=== PATIENT | female | born 1935 | race Caucasian/White ===

== ENCOUNTER 2019-07-20 07:43 | Inpatient (IN) | payer MEDICARE ==
[~2019-07-20] VITALS: Ht 157.5 cm; Wt 70.3 kg
[2019-07-20 07:44] VITALS: BP 111/53
--- NOTE | 2019-07-20 07:50 | NUR ---
ED Nurse Note: Patient walked into ED from home brought in by her son, patient needs "evaluation" before patient gets placed into a fci, [facility]. patient is alert awake, ambulatory with her walker. son at bedside. patient has HD scheduled MWF, last HD was on 07/19/18.
--- NOTE | 2019-07-20 08:19 | Emergency Room Report ---
History of Present Illness General Chief Complaint: General Complaint Source: Patient Present Illness HPI Patient is an 83-year-old female who was sent in by nursing facility for general evaluation. Patient a prior history of end-stage renal disease is normally on dialysis Monday. She had last dialysis yesterday. She denies any current complaints. She prior history of cardiac arrest in the past and had prior abdominal surgery in the past. Had previous bowel resection. Denies any current constipation or diarrhea but intermittently has episodes of constipation. She states she is followed by Dr. Alyssa fink patient's being placed in a facility contact [phone] Allergies: Coded Allergies: ADHESIVE TAPE (Verified Allergy, Unknown, 07/20/19) CODEINE (Verified Allergy, Unknown, 07/20/19) ERYTHROMYCIN BASE (Verified Allergy, Unknown, 07/20/19) PENICILLINS (Verified Allergy, Unknown, 07/20/19) Patient History Past Medical History: see triage record Now: No Reviewed Nursing Documentation: PMH: Agreed; PSxH: Agreed Nursing Documentation-PMH Past Medical History: No Stated History Hx Cardiac Problems: Yes Hx Hypertension: Yes Hx Diabetes: Yes Hx Gastrointestinal Problems: Yes - bowel obstruction Hx Dialysis: Yes - M/W/F History Of Psychiatric Problem: Yes - Depression Hx Cerebrovascular Accident: Yes - 2017 Review of Systems All Other Systems: negative except mentioned in HPI Physical Exam Vital Signs Date Time Temp Pulse Resp B/P (MAP) Pulse Ox O2 Delivery O2 Flow Rate FiO2 07/20/19 07:44 97.9 81 18 111/53 (72) 98 Room Air Sp02 EP Interpretation: reviewed, normal General Appearance: normal inspection, well appearing, no apparent distress, alert, GCS 15, Chronically Ill Head: atraumatic ENT: normal ENT inspection, hearing grossly normal, normal voice Neck: normal inspection, full range of motion, supple, no bony tend Respiratory: normal inspection, lungs clear, normal breath sounds, no respiratory distress, no retraction, no wheezing Cardiovascular #1: regular rate, rhythm, no edema Gastrointestinal: normal inspection, normal bowel sounds, non tender, soft, no guarding, no hernia Genitourinary: no CVA tenderness Musculoskeletal: normal inspection, back normal, normal range of motion Neurologic: alert, responsive, speech normal, normal inspection Psychiatric: normal inspection, judgement/insight normal, mood/affect normal Medical Decision Making Diagnostic Impression: Primary Impression: End stage renal disease Additional Impression: Thrombocytopenia ER Course Presented for generalized evaluation. Differential diagnosis includes not limited to electrolyte abnormality, renal insufficiency, anemia among others. Because of complexity of patient's case laboratory tests and imaging studies were ordered. Patient was noted to have prior history of end-stage renal disease and is currently on dialysis Monday. Patient is currently appears to be stable in terms of her renal function. She is currently undergoing dialysis and last had dialysis yesterday. Dr. Duke Lozano was contacted for inpatient management due to covering physician for Dr. La. Labs Test 07/20/19 09:21 White Blood Count 9.6 K/UL (4.8-10.8) Red Blood Count 3.69 M/UL (4.20-5.40) Hemoglobin 12.0 G/DL (12.0-16.0) Hematocrit 36.5 % (37.0-47.0) Mean Corpuscular Volume 99 FL (80-99) Mean Corpuscular Hemoglobin 32.4 PG (27.0-31.0) Mean Corpuscular Hemoglobin Concent 32.7 G/DL (32.0-36.0) Red Cell Distribution Width 13.5 % (11.6-14.8) Platelet Count 131 K/UL (150-450) Mean Platelet Volume 9.9 FL (6.5-10.1) Neutrophils (%) (Auto) 74.9 % (45.0-75.0) Lymphocytes (%) (Auto) 13.4 % (20.0-45.0) Monocytes (%) (Auto) 7.5 % (1.0-10.0) Eosinophils (%) (Auto) 3.3 % (0.0-3.0) Basophils (%) (Auto) 0.9 % (0.0-2.0) Prothrombin Time 10.9 SEC (9.30-11.50) Prothromb Time International Ratio 1.0 (0.9-1.1) Activated Partial Thromboplast Time 27 SEC (23-33) Sodium Level 139 MMOL/L (136-145) Potassium Level 4.9 MMOL/L (3.5-5.1) Chloride Level 100 MMOL/L (98-107) Carbon Dioxide Level 30 MMOL/L (21-32) Anion Gap 9 mmol/L (5-15) Blood Urea Nitrogen 35 mg/dL (7-18) Creatinine 4.3 MG/DL (0.55-1.30) Estimat Glomerular Filtration Rate mL/min (>60) Glucose Level 124 MG/DL (74-106) Calcium Level 8.4 MG/DL (8.5-10.1) Total Bilirubin 0.4 MG/DL (0.2-1.0) Aspartate Amino Transf (AST/SGOT) 18 U/L (15-37) Alanine Aminotransferase (ALT/SGPT) 18 U/L (12-78) Alkaline Phosphatase 113 U/L (46-116) Troponin I 0.017 ng/mL (0.000-0.056) Total Protein 7.6 G/DL (6.4-8.2) Albumin 3.6 G/DL (3.4-5.0) Globulin 4.0 g/dL Albumin/Globulin Ratio 0.9 (1.0-2.7) Lipase 318 U/L (73-393) Last Vital Signs Date Time Temp Pulse Resp B/P (MAP) Pulse Ox O2 Delivery O2 Flow Rate FiO2 07/20/19 07:44 97.9 81 18 111/53 (72) 98 Room Air Status: unchanged Disposition: ADMITTED INPATIENT Condition: Stable Feliciano Brennan MD Jul 20, 2019 08:19
--- NOTE | 2019-07-20 09:26 | NUR ---
ED Nurse Note: ER fax number provided to the son for patient's medication list.
[2019-07-20 09:37] LABS: BASOPHILS % (AUTO) 0.9 % (0.0-2.0); EOSINOPHILS % (AUTO) 3.3 % (0.0-3.0); HEMATOCRIT 36.5 % (37.0-47.0); LYMPHOCYTES % (AUTO) 13.4 % (20.0-45.0); MEAN CORPUSCULAR VOLUME 99 FL (80-99); MONOCYTES % (AUTO) 7.5 % (1.0-10.0); NEUTROPHILS % (AUTO) 74.9 % (45.0-75.0); PLATELET COUNT 131 K/UL (150-450); RED BLOOD COUNT 3.69 M/UL (4.20-5.40); RED CELL DISTRIBUTION WIDTH 13.5 % (11.6-14.8); WHITE BLOOD COUNT 9.6 K/UL (4.8-10.8)
[2019-07-20 09:49] LABS: ANION GAP 9 mmol/L (5-15); BLOOD UREA NITROGEN 35 mg/dL (7-18); CALCIUM 8.4 MG/DL (8.5-10.1); CARBON DIOXIDE 30 MMOL/L (21-32); CHLORIDE 100 MMOL/L (98-107); CREATININE 4.3 MG/DL (0.55-1.30); POTASSIUM 4.9 MMOL/L (3.5-5.1); SODIUM 139 MMOL/L (136-145)
[2019-07-20 09:54] LABS: ALANINE AMINOTRANSFERASE 18 U/L (12-78); ALBUMIN 3.6 G/DL (3.4-5.0); ALBUMIN/GLOBULIN RATIO 0.9 (1.0-2.7); ALKALINE PHOSPHATASE 113 U/L (46-116); ASPARTATE AMINO TRANSFERASE 18 U/L (15-37); BILIRUBIN,TOTAL 0.4 MG/DL (0.2-1.0)
--- NOTE | 2019-07-20 10:00 | NUR ---
ED Nurse Note: patient's son is trying to get medication list from patient's dialysis center at the moment. ER fax number provided.
[2019-07-20 10:53] VITALS: BP 114/41
--- NOTE | 2019-07-20 11:03 | NUR ---
ED Nurse Note: patient unable to provide urine sample at this time. reports she only voids once a day. patient reports she is oliguric. son at bedside. phone number [phone]. patient provided with blankets.
--- NOTE | 2019-07-20 12:26 | NUR ---
ED Nurse Note: report given to Danisha WILD, endorsed all plan of care to her.
--- NOTE | 2019-07-20 12:27 | NUR ---
ED Nurse Note: endorsed to Danisha RN that patient's medication reconciliation was not done yet, son will be providing a medication list.
--- NOTE | 2019-07-20 12:40 | NUR ---
ED Nurse Note: patient transferred to 2E with all of her belongings on ACLS protocol without complication. son just came back with red bag and medication lists, endorsed to Elana WILD.
[2019-07-20 12:45] VITALS: BP 116/44
--- NOTE | 2019-07-20 12:45 | NUR ---
NURSE NOTES: Patient's admitted by Dr. Lozano. Patient arrived by marlene with assist of RN and ER medic technician. ER report given by JUNITO Simon. Patient's in stable condition, no s/s of distress or SOB, AO x 4, eyes open spontaenously, nonlabored breathinged, denies pain, denies chest pain. monitoring coordinator applied, IV is saline locked, patent and asymptomatic, flushed well. Reconciled medications are entered, and reviewed by Dr. Lozano. Patient's belonging list went over with patient at bedside and signed by patient. Patient's medications are brought down to pharmacist. Vital signs: BP 116/44m, IA 71, Temp 97.4, RR 16, O2 95%. Dr. Lozano aware of patient's arrival and ordered admission orders. Orders acknowledged and carried out. Will continue to monitor.
[2019-07-20] MEDS ORDERED: PAROXETINE CR12.5 MG PO (13:19)
[2019-07-20] MEDS ORDERED: PRAMIPEXOLE D0.25 MG ORAL (13:19)
[2019-07-20] MEDS ORDERED: RISPERIDONE0.25 MG PO ×2 (13:19)
[2019-07-20] MEDS ORDERED: AURYXIA210 MG PO (13:19)
[2019-07-20] MEDS ORDERED: CLOPIDOGREL75 MG ORAL (13:19)
[2019-07-20] MEDS ORDERED: Albuterol/Ipratropium 3ml neb HHN PRN (14:30)
[2019-07-20] MEDS ORDERED: Milk of Magnesia 30ml Ud ORAL PRN (14:30)
--- NOTE | 2019-07-20 14:38 | History and Physical ---
History of Present Illness General Date patient seen: Jul 20, 2019 Time patient seen: 13:50 Reason for Hospitalization: failure to thrive, placement Present Illness HPI 83 F presenting with placement issue. Just arrived from a SNF in [place], moved back to [facility] with son. Was in talks with [facility]? (SNF) for placement. Currently denies any symptoms. At baseline, mostly bedbound, but able to ambulate little bit with a walker. PMHx significant for ESRD on HD (via left AVF ), dementia, depression, left femoral fx s/p manoj placement, cardiac arrest. Patient is DNR/DNI. Allergies: Coded Allergies: ADHESIVE TAPE (Verified Allergy, Unknown, 07/20/19) CODEINE (Verified Allergy, Unknown, 07/20/19) ERYTHROMYCIN BASE (Verified Allergy, Unknown, 07/20/19) PENICILLINS (Verified Allergy, Unknown, 07/20/19) Medication History Scheduled Clopidogrel* (Clopidogrel*), 75 MG ORAL DAILY, (Reported) Ferric Citrate (Auryxia), 210 MG PO THREE TIMES A DAY, (Reported) PARoxetine HCl (Paroxetine Cr), 20 MG PO DAILY, (Reported) Risperidone (Risperidone), 0.25 MG PO DAILY, (Reported) Scheduled PRN Pramipexole* (Mirapex*), 0.125 MG ORAL PRN PRN for prn, (Reported) Risperidone (Risperidone), 0.25 MG PO Q12HR PRN for For Anxiety, (Reported) Patient History Healthcare decision maker Resuscitation status Advanced Directive on File Past Medical/Surgical History Past Medical/Surgical History: (1) End stage renal disease (2) Failure to thrive (3) Thrombocytopenia (4) Depression Review of Systems Constitutional: Denies: no symptoms, see HPI, chills, sweats, fever, malaise, weakness, other Eye: Denies: no symptoms, see HPI, eye pain, blurred vision, tearing, double vision, nose pain, nose congestion, acuity changes, discharge, other ENT: Denies: no symptoms, see HPI, ear pain, ear discharge, nose pain, nose congestion, throat pain, throat swelling, mouth pain, hearing loss, nasal discharge, other Respiratory: Denies: no symptoms, see HPI, cough, orthopnea, shortness of breath, stridor, wheezing, VALDES, sputum, other Cardiovascular: Denies: no symptoms, see HPI, chest pain, edema, palpitations, syncope, PND, other Gastrointestinal: Denies: no symptoms, see HPI, abdominal pain, constipation, diarrhea, nausea, vomiting, melena, hematemesis, other Genitourinary: Denies: no symptoms, see HPI, discharge, dysuria, frequency, hematuria, pain, retention, incontinence, urgency, vag bleed/dc, other Musculoskeletal: Denies: no symptoms, see HPI, back pain, gout, joint pain, joint swelling, muscle pain, muscle stiffness, other Skin: Denies: no symptoms, see HPI, rash, change in color, change in hair/nails , dryness, lesions, other Psychiatric: Denies: no symptoms, see HPI, prior hx, anxiety, depressed feelings, emotional problems, SI, HI, hallucinations, other Neurological: Denies: no symptoms, see HPI, headache, numbness, paresthesia, seizure, tingling, tremors, focal weakness, syncope, dizziness, other Endocrine: Denies: no symptoms, see HPI, excessive sweating, flushing, intolerance to temperature, increased thirst, increased urine, unexplained weight loss, other Hematologic/Lymphatic: Denies: no symptoms, see HPI, anemia, blood clots, easy bleeding, easy bruising, swollen glands, diathesis, other All Other Systems: negative except mentioned in HPI Physical Exam General Appearance: WD/WN, no apparent distress HEENT: normocephalic, atraumatic Neck: supple Respiratory/Chest: lungs clear, normal breath sounds, no respiratory distress Cardiovascular/Chest: normal rate, regular rhythm, no gallop/murmur Abdomen: normal bowel sounds, non tender, soft Neurologic: alert, oriented x 3 Last 24 Hour Vital Signs Date Time Temp Pulse Resp B/P (MAP) Pulse Ox O2 Delivery O2 Flow Rate FiO2 07/20/19 12:40 97.9 70 16 114/41 97 Room Air 07/20/19 10:53 70 16 114/41 97 Room Air 07/20/19 09:23 81 18 Room Air 07/20/19 07:44 97.9 81 18 111/53 98 Room Air 07/20/19 07:44 97.9 81 18 111/53 (72) 98 Room Air Laboratory Tests Test 07/20/19 09:21 White Blood Count 9.6 K/UL (4.8-10.8) Red Blood Count 3.69 M/UL (4.20-5.40) L Hemoglobin 12.0 G/DL (12.0-16.0) Hematocrit 36.5 % (37.0-47.0) L Mean Corpuscular Volume 99 FL (80-99) Mean Corpuscular Hemoglobin 32.4 PG (27.0-31.0) H Mean Corpuscular Hemoglobin Concent 32.7 G/DL (32.0-36.0) Red Cell Distribution Width 13.5 % (11.6-14.8) Platelet Count 131 K/UL (150-450) L Mean Platelet Volume 9.9 FL (6.5-10.1) Neutrophils (%) (Auto) 74.9 % (45.0-75.0) Lymphocytes (%) (Auto) 13.4 % (20.0-45.0) L Monocytes (%) (Auto) 7.5 % (1.0-10.0) Eosinophils (%) (Auto) 3.3 % (0.0-3.0) H Basophils (%) (Auto) 0.9 % (0.0-2.0) Prothrombin Time 10.9 SEC (9.30-11.50) Prothromb Time International Ratio 1.0 (0.9-1.1) Activated Partial Thromboplast Time 27 SEC (23-33) Sodium Level 139 MMOL/L (136-145) Potassium Level 4.9 MMOL/L (3.5-5.1) Chloride Level 100 MMOL/L (98-107) Carbon Dioxide Level 30 MMOL/L (21-32) Anion Gap 9 mmol/L (5-15) Blood Urea Nitrogen 35 mg/dL (7-18) H Creatinine 4.3 MG/DL (0.55-1.30) H Estimat Glomerular Filtration Rate mL/min (>60) Glucose Level 124 MG/DL (74-106) H Calcium Level 8.4 MG/DL (8.5-10.1) L Total Bilirubin 0.4 MG/DL (0.2-1.0) Aspartate Amino Transf (AST/SGOT) 18 U/L (15-37) Alanine Aminotransferase (ALT/SGPT) 18 U/L (12-78) Alkaline Phosphatase 113 U/L (46-116) Troponin I 0.017 ng/mL (0.000-0.056) Total Protein 7.6 G/DL (6.4-8.2) Albumin 3.6 G/DL (3.4-5.0) Globulin 4.0 g/dL Albumin/Globulin Ratio 0.9 (1.0-2.7) L Lipase 318 U/L (73-393) Microbiology Date/Time Source Procedure Growth Status 07/20/19 12:15 Rectum Received Height (Feet): 5 Height (Inches): 3.00 Weight (Pounds): 145 Medications Current Medications Medications (Trade) Dose Ordered Sig/Iliana Route PRN Reason Start Time Stop Time Status Last Admin Dose Admin Clopidogrel Bisulfate (Plavix) 75 mg DAILY ORAL 07/20/19 14:26 08/19/19 14:25 Pramipexole (Mirapex) 0.125 mg PRN PRN ORAL prn 07/20/19 14:30 08/19/19 14:29 UNV Risperidone (RisperDAL) 0.25 mg DAILY ORAL 07/21/19 09:00 08/20/19 08:59 Risperidone (RisperDAL) 0.25 mg Q12H PRN ORAL For Anxiety 07/20/19 14:30 08/19/19 14:29 Assessment/Plan Problem List: (1) End stage renal disease ICD Codes: N18.6 - End stage renal disease SNOMED: 07681161 (2) Failure to thrive SNOMED: 68473261 (3) Thrombocytopenia ICD Codes: D69.6 - Thrombocytopenia, unspecified SNOMED: 316326641 (4) Depression ICD Codes: F32.9 - Major depressive disorder, single episode, unspecified SNOMED: 41817432 Status: doing well, stable Assessment/Plan: Ms. Blancas is a 83 year old female with ESRD on HD, depression, behavioral disturbance, cardiac arrest, L femoral fx s/p manoj placement, largely bedbound, presenting from SNF in [place], here for placement into SNF in [facility]. #Placement -Admit to inpatient. -Case management consult. Will need 3 days of inpatient stay for SNF. #ESRD on HD gets it via LUE AVF. MWF -> TTS (recently switched) -Nephrology consult. -Case management for setting up outpatient dialysis #Depression #Behavioral disturbance -Continue daily and prn risperidone. -Son requesting increasing dose of risperidone given "outbursts" of agitation at times. Will monitor and uptitrate prn. #s/p cardiac arrest -continue home plavix. Indication unclear, ?CAD. Total time spent on encounter, 72 minutes, >50% spent on counseling and coordination of care. Extra 36 minutes spent on chart review. Paul Lozano M.D. Jul 20, 2019 14:38
[2019-07-20 16:00] VITALS: BP 122/38
--- NOTE | 2019-07-20 19:32 | NUR ---
HAND-OFF: Report given to GARY Blevins. Patient's stable. Plan of care endorsed.
[2019-07-20 20:00] VITALS: BP 110/45
[2019-07-20] MEDS: Docusate 100mg cap ORAL SCH (21:18)
[2019-07-21] VITALS: BP 104/46
[2019-07-21 04:00] VITALS: BP 117/49
--- NOTE | 2019-07-21 07:30 | NUR ---
HAND-OFF: Report given to JUNITO WATKINS.
[2019-07-21 08:00] VITALS: BP 156/77
[2019-07-21] MEDS: Docusate 100mg cap ORAL SCH ×3 (09:24→18:00)
[2019-07-21] MEDS ORDERED: ENTRESTO 49 MG1 EACH PO (11:42)
[2019-07-21 12:00] VITALS: BP 113/44
[2019-07-21] MEDS: PARoxetine 20mg tab ORAL SCH (12:15)
[2019-07-21] MEDS ORDERED: URSODIOL300 MG ORAL (12:30)
[2019-07-21] MEDS ORDERED: ATORVASTATIN CA40 MG ORAL (12:30)
[2019-07-21] MEDS ORDERED: AURYXIA210 MG PO (12:30)
[2019-07-21] MEDS ORDERED: CARVEDILOL3.125 MG ORAL (12:30)
[2019-07-21] MEDS: Ursodiol 300mg cap ORAL SCH ×2 (12:45→18:00)
--- NOTE | 2019-07-21 13:10 | General Progress Note ---
Assessment/Plan Problem List: (1) End stage renal disease ICD Codes: N18.6 - End stage renal disease SNOMED: 36736944 (2) Failure to thrive SNOMED: 04148008 (3) Thrombocytopenia ICD Codes: D69.6 - Thrombocytopenia, unspecified SNOMED: 115034354 (4) Depression ICD Codes: F32.9 - Major depressive disorder, single episode, unspecified SNOMED: 37875872 Status: doing well, stable Assessment/Plan: Ms. Blancas is a 83 year old female with ESRD on HD, depression, behavioral disturbance, cardiac arrest, L femoral fx s/p manoj placement, largely bedbound, presenting from SNF in [place], here for placement into SNF in [facility]. #Placement -Admit to inpatient. -Case management consult. Will need 3 days of inpatient stay for SNF. -To be followed up on Monday. (Has been talking with [facility]?) -PT ordered #ESRD on HD gets it via LUE AVF. MWF -> TTS (recently switched) -Nephrology consult. -Case management for setting up outpatient dialysis #Depression #Restlessness #Behavioral disturbance -Continue daily and prn risperidone. -Continue Paroxetine 20 mg daily -Continue Pramipexole 0.125 mg qhs prn -Son requesting increasing dose of risperidone given "outbursts" of agitation at times. Will monitor and uptitrate prn. #s/p cardiac arrest Unclear etiology of cardiac arrest. -continue home plavix 75 daily -continue home coreg 3.125 BID -Continue Entresto 49/51 BID -Continue Lipitor 80 daily #constipation No BM ~4 days. -Lactulose x1, dulcolax x1 today. -Standing colace BID. Total time spent on encounter, 35 minutes, >50% spent on counseling and coordination of care. Subjective Date patient seen: Jul 21, 2019 Time patient seen: 12:52 ROS Limited/Unobtainable: No Constitutional: Denies: no symptoms, chills, diaphoresis, fever, malaise, weakness, other HEENT: Denies: no symptoms, eye pain, blurred vision, tearing, double vision, ear pain, ear discharge, nose pain, nose congestion, throat pain, throat swelling, mouth pain, mouth swelling, other Cardiovascular: Denies: no symptoms, chest pain, edema, irregular heart rate, lightheadedness, palpitations, syncope, other Respiratory: Denies: no symptoms, cough, orthopnea, shortness of breath, SOB with excertion, SOB at rest, sputum, stridor, wheezing, other Gastrointestinal/Abdominal: Denies: no symptoms, abdomen distended, abdominal pain, black stools, tarry stools, blood in stool, constipated, diarrhea, difficulty swallowing, nausea, poor appetite, poor fluid intake, rectal bleeding , vomiting, other Genitourinary: Denies: no symptoms, burning, discharge, frequency, flank pain, hematuria, incontinence, pain, urgency, other Neurologic/Psychiatric: Denies: no symptoms, anxiety, depressed, emotional problems, headache, numbness, paresthesia, pre-existing deficit, seizure, tingling, tremors, weakness, other Endocrine: Denies: no symptoms, excessive sweating, flushing, intolerance to cold, intolerance to heat, increased hunger, increased thirst, increased urine, unexplained weight gain, unexplained weight loss, other Hematologic/Lymphatic: Denies: no symptoms, anemia, easy bleeding, easy bruising, other Allergies: Coded Allergies: ADHESIVE TAPE (Verified Allergy, Unknown, 07/20/19) CODEINE (Verified Allergy, Unknown, 07/20/19) ERYTHROMYCIN BASE (Verified Allergy, Unknown, 07/20/19) PENICILLINS (Verified Allergy, Unknown, 07/20/19) All Systems: reviewed and negative except above Subjective seen with son at bedside. Was happy PT was able to get her up and walk around the hospital. Denies any symptoms. Objective Last 24 Hour Vital Signs Date Time Temp Pulse Resp B/P (MAP) Pulse Ox O2 Delivery O2 Flow Rate FiO2 07/21/19 08:43 Room Air 07/21/19 08:00 97.7 80 18 156/77 (103) 95 07/21/19 04:00 97.3 66 18 117/49 (71) 96 07/21/19 04:00 66 07/21/19 00:00 97.9 71 18 104/46 (65) 97 07/21/19 00:00 69 07/20/19 21:00 Room Air 07/20/19 20:00 98.1 70 18 110/45 (66) 96 07/20/19 20:00 71 07/20/19 19:41 69 18 95 Room Air 21 07/20/19 16:00 68 07/20/19 16:00 97.8 69 17 122/38 (66) 96 07/20/19 15:12 Room Air Intake and Output 07/20/19 07/21/19 19:00 07:00 Intake Total 120 ml Balance 120 ml Intake Oral 120 ml # Bowel Movements 1 Height (Feet): 5 Height (Inches): 2.00 Weight (Pounds): 155 General Appearance: WD/WN, no apparent distress, alert EENT: PERRL/EOMI Neck: supple Cardiovascular: normal peripheral pulses, normal rate, regular rhythm, no gallop/murmur Respiratory/Chest: chest wall non-tender, lungs clear, normal breath sounds Abdomen: normal bowel sounds, non tender, soft Edema: no edema noted Arm (L), no edema noted Arm (R), no edema noted Leg (L), no edema noted Leg (R), no edema noted Pedal (L), no edema noted Pedal (R), no edema noted Generalized Neurologic: sap grc security II-XII grossly normal, alert, oriented x 3 Paul Lozano M.D. Jul 21, 2019 13:10
[2019-07-21] MEDS ORDERED: Lactulose 20gm/30ml UDC ORAL SCH (13:15)
[2019-07-21] MEDS ORDERED: Bisacodyl EC 5mg tab ORAL SCH (13:15)
--- NOTE | 2019-07-21 13:48 | NUR ---
PT Note PT staci completed, treatment initiated. Patient has muscle weakness and decreased standing balance, requiring assist in functional mobility and gait. Patient can benefit from PT to increase her muscle strength and balance to improve her functional mobility and gait. Addendum: 07/21/19 at 1348 by FRANCISCA SHARMA PT Amended: Links added.
[2019-07-21 16:00] VITALS: BP 119/81
[2019-07-21 20:00] VITALS: BP 135/61
--- NOTE | 2019-07-21 20:00 | NUR ---
NURSE NOTES: RECEIVED PATIENT LYING IN BED, AWAKE, ALERT/ORIENTED X3, VERBALLY RESPONSIVE, DENIES PAIN. NO SIGNS AND SYMPTOMS OF ACUTE CARDIO RESPIRATORY DISTRESS/SHORTNESS OF BREATH, DENIES CHEST PAIN, NO PERIPHERAL EDEMA NOTED. ABDOMEN SOFT/NON DISTENDED/NON TENDER, NO BOWEL MOVEMENT, PASSING FLATULENCE. SIDE RAILS UP X3/BED IN LOWEST POSITION FOR SAFETY, CALL LIGHT WITHIN REACH. FREQUENT ROUNDING FOR SAFETY/NEEDS. NAD. DISCHARGE PLAN [facility], FAMILY/PATIENT AWARE.
[2019-07-21] MEDS: Atorvastatin 80mg tab ORAL SCH (21:07)
[2019-07-22] VITALS: BP 115/82
[2019-07-22 04:00] VITALS: BP_SYST 108; BP_SYST 136; BP_DIAS 61; BP_DIAS 78
--- NOTE | 2019-07-22 06:27 | NUR ---
NURSE NOTES: RESTED WELL, NO SIGNIFICANT CHANGE OF CONDITION NOTED THROUGHOUT THE NIGHT. SAFETY MAINTAINED. NAD.
[2019-07-22 08:07] VITALS: BP 125/58
--- NOTE | 2019-07-22 08:12 | NUR ---
NURSE NOTES: Pt awake/alert in bed, breathing easily on room air, denies SOB and denies pain at this time. Vital signs stable with SR @ 84 on monitor. AV shunt KEVIN good bruit/thrill. IV access RAC flushed with 10 ml NS and locked. Bed left in low position, side rails up x 3 and call light left near pt's hand.
--- NOTE | 2019-07-22 08:51 | General Progress Note ---
Assessment/Plan Problem List: (1) End stage renal disease ICD Codes: N18.6 - End stage renal disease SNOMED: 12229272 (2) Failure to thrive SNOMED: 10564413 (3) Thrombocytopenia ICD Codes: D69.6 - Thrombocytopenia, unspecified SNOMED: 713342478 (4) Depression ICD Codes: F32.9 - Major depressive disorder, single episode, unspecified SNOMED: 89894450 Status: doing well, stable Assessment/Plan: is a 83 year old female with ESRD on HD, depression, behavioral disturbance, cardiac arrest, L femoral fx s/p manoj placement, largely bedbound, presenting from SNF in [place], here for placement into SNF in [facility]. #ESRD on HD gets it via [facility]UE AVF. MWF -> TTS (recently switched) -Nephrology consult with Dr. Moreno -Get CMP today, may or may not need HD, last HD on Wednesday 07/19 -Case management for setting up outpatient dialysis #Depression #Restlessness #Behavioral disturbance -Continue daily and prn risperidone. -Continue Paroxetine 20 mg daily -Continue Pramipexole 0.125 mg qhs prn -Son requesting increasing dose of risperidone given "outbursts" of agitation at times. Will monitor and up titrate prn. #s/p cardiac arrest Unclear etiology of cardiac arrest. -continue home plavix 75 daily -continue home coreg 3.125 BID -Continue Entresto 49/51 BID -Continue Lipitor 80 daily #constipation No BM ~4 days. -Lactulose x1, dulcolax x1 today. -Standing colace BID. #Placement -Case management consult. Will need 3 days of inpatient stay for SNF. -To be followed up on Monday. (Has been talking with Lisa Page?) -PT ordered -Case d/w Son. Plan of care d/w son, CM and government operations consultant. I spent 40 minutes on this encounter. > 50% spent on counselling and care coordination. I spent an additional 35 minutes reviewing hospitalization and course of treatment. Subjective Date patient seen: Jul 22, 2019 ROS Limited/Unobtainable: No Constitutional: Denies: no symptoms, chills, diaphoresis, fever, malaise, weakness, other HEENT: Denies: no symptoms, eye pain, blurred vision, tearing, double vision, ear pain, ear discharge, nose pain, nose congestion, throat pain, throat swelling, mouth pain, mouth swelling, other Cardiovascular: Denies: no symptoms, chest pain, edema, irregular heart rate, lightheadedness, palpitations, syncope, other Respiratory: Denies: no symptoms, cough, orthopnea, shortness of breath, SOB with excertion, SOB at rest, sputum, stridor, wheezing, other Gastrointestinal/Abdominal: Denies: no symptoms, abdomen distended, abdominal pain, black stools, tarry stools, blood in stool, constipated, diarrhea, difficulty swallowing, nausea, poor appetite, poor fluid intake, rectal bleeding , vomiting, other Genitourinary: Denies: no symptoms, burning, discharge, frequency, flank pain, hematuria, incontinence, pain, urgency, other Neurologic/Psychiatric: Denies: no symptoms, anxiety, depressed, emotional problems, headache, numbness, paresthesia, pre-existing deficit, seizure, tingling, tremors, weakness, other Hematologic/Lymphatic: Denies: no symptoms, anemia, easy bleeding, easy bruising, other Allergies: Coded Allergies: PHENOBARBITAL (Verified Allergy, Severe, 07/22/19) ADHESIVE TAPE (Verified Allergy, Unknown, 07/20/19) CODEINE (Verified Allergy, Unknown, 07/20/19) ERYTHROMYCIN BASE (Verified Allergy, Unknown, 07/20/19) PENICILLINS (Verified Allergy, Unknown, 07/20/19) Subjective Seen and examined at bedside. No complaints, denies sob, chest pain. Spoke to qamar Fuller on the phone. no labs ordered for today Objective Last 24 Hour Vital Signs Date Time Temp Pulse Resp B/P (MAP) Pulse Ox O2 Delivery O2 Flow Rate FiO2 07/22/19 08:07 97.7 72 18 125/58 (80) 96 07/22/19 04:00 63 07/22/19 04:00 98.0 61 20 108/61 (77) 94 07/22/19 00:00 65 07/22/19 00:00 98.7 67 18 115/82 (93) 96 07/21/19 21:07 69 134/60 07/21/19 21:00 Room Air 07/21/19 20:06 74 18 94 Room Air 21 07/21/19 20:00 98.2 69 18 135/61 (85) 96 07/21/19 20:00 65 07/21/19 16:00 97.5 71 20 119/81 (94) 96 07/21/19 16:00 74 07/21/19 12:45 80 156/77 07/21/19 12:00 97.6 65 20 113/44 (67) 95 07/21/19 12:00 61 Intake and Output 07/21/19 07/22/19 19:00 07:00 Intake Total 240 ml 600 ml Balance 240 ml 600 ml Intake Oral 240 ml 600 ml # Voids 1 1 # Bowel Movements 3 Height (Feet): 5 Height (Inches): 2.00 Weight (Pounds): 152 General Appearance: no apparent distress, alert EENT: PERRL/EOMI, normal ENT inspection Neck: non-tender, normal alignment, supple Cardiovascular: normal peripheral pulses, normal rate, no gallop/murmur, no JVD Respiratory/Chest: lungs clear, normal breath sounds, no respiratory distress Abdomen: non tender, soft, no organomegaly, no mass Extremities: normal range of motion, non-tender, normal inspection, no calf tenderness Edema: other - NO edema Skin: normal pigmentation, warm/dry Kb Murphy M.D. Jul 22, 2019 08:51
[2019-07-22] MEDS: Docusate 100mg cap ORAL SCH ×3 (09:16→17:38)
[2019-07-22] MEDS: PARoxetine 20mg tab ORAL SCH (09:17)
[2019-07-22] MEDS: Ursodiol 300mg cap ORAL SCH ×2 (09:17→17:38)
--- NOTE | 2019-07-22 10:25 | Consultation ---
Consult Note Consult Note asked to eval for dialysis management Patient known ESRD - last dialysed Wednesday 07/19- admitted to [facility] same evening Has left arm fistula Has a Manager Therapy assigned in [facility] and OP dialysis spot for Mon Sat denies SOB VSS NAD left arm fistula no wheeze abd soft heart regular no edema . Assessment/Plan ESRD Other Dx; CAD Depression check labs and assess the need for HD today . Otherwise IF discharged can have HD as OP in am Heath Moreno MD Jul 22, 2019 10:25
[2019-07-22 10:35] LABS: ALANINE AMINOTRANSFERASE 20 U/L (12-78); ALBUMIN 2.9 G/DL (3.4-5.0); ALBUMIN/GLOBULIN RATIO 0.9 (1.0-2.7); ALKALINE PHOSPHATASE 99 U/L (46-116); ANION GAP 11 mmol/L (5-15); ASPARTATE AMINO TRANSFERASE 15 U/L (15-37); BILIRUBIN,TOTAL 0.4 MG/DL (0.2-1.0); BLOOD UREA NITROGEN 68 mg/dL (7-18); CALCIUM 8.5 MG/DL (8.5-10.1); CARBON DIOXIDE 28 MMOL/L (21-32); CHLORIDE 99 MMOL/L (98-107); CREATININE 7.6 MG/DL (0.55-1.30); POTASSIUM 5.2 MMOL/L (3.5-5.1); SODIUM 138 MMOL/L (136-145)
--- NOTE | 2019-07-22 10:35 | NUR ---
CASE MANAGEMENT:REVIEW 83 YR OLD FEMALE PRESENTED TO ER BY SON PMH: ESRD ON HD M/W/F SI: FTT. ESRD. THROMBOCYTOPENIA 97.9 81 18 111/53 98% ON RA PLT-131 BUN+35 CR+4.3 GLUCOSE+124 IS: PROTONIX PO QD ENTRESTO PO Q12 COREG PO Q12 ACTIGALL PO BID PAXIL PO QD RISPERDAL PO QD : TELEMETRY STATUS DCP: PLAN IS FOR [facility]
--- NOTE | 2019-07-22 10:51 | NUR ---
DISCHARGE PLANNING CALLED [facility] AND SPOKE WITH TERRI THEY ARE TRYING TO ARRANGE DIALYSIS CLOSE TO [facility] NEW HEP PANEL MAY NEED TO BE ORDERED
[2019-07-22 11:51] LABS: PHOSPHORUS 6.2 MG/DL (2.5-4.9)
[2019-07-22 12:00] VITALS: BP 128/52
--- NOTE | 2019-07-22 13:54 | NUR ---
DISCHARGE PLANNING PLAN IS FOR PATIENT TO DISCHARGE TOMORROW 07/23/19 TO [facility] AFTER DIALYSIS RECEIVED A CALL FROM MYRNA AT [facility] STATING THEY HAVE ALREADY ARRANGED DIALYSIS AT [facility] T:[phone] TTS 10:30 AM *SINCE PATIENT DOESN'T HAVE SECONDARY INSURANCE YANET FROM [facility] IS WORKING WITH SON TO PROVIDE PRIVATE TRANSPORTATION TO AND FROM DIALYSIS Addendum: 07/22/19 at 1704 by CHELSEA CHENEY LVN LVN RECEIVED CALL FROM BEDSIDE NURSE, JUNE, STATING PATIENT IS REFUSING TO BE DILAYZED HERE AT [place] TOMORROW AND WANTS TO BE DISCHARGED AT [facility] TO DIALYSIS AT [facility] THIS REIMBURSEMENT COUNSELOR CONTACTED [facility] T; [phone]...NO ONE ANSWERED..LEFT URGENT MESSAGE AND REQUESTED RETURN PHONE CALL ASKED NURSE TO NOTIFY SON OF HIS MOTHER' S REQUEST
[2019-07-22 16:00] VITALS: BP 116/45
--- NOTE | 2019-07-22 19:22 | NUR ---
NURSE NOTES: Received pt from JUNITO Wan. Pt is awake and resting in bed in no acute distress. Seizure precautions implemented, and fall precautions implemented. Iv site intact. Bed locked in lowest position, bed alarm on, call light within reach. Will continue with plan of care.
[2019-07-22 20:00] VITALS: BP 116/51
[2019-07-22] MEDS: Atorvastatin 80mg tab ORAL SCH (20:57)
[2019-07-23] VITALS: BP 128/48
[2019-07-23 04:00] VITALS: BP 118/50
[2019-07-23 07:21] LABS: BASOPHILS % (AUTO) 1.2 % (0.0-2.0); EOSINOPHILS % (AUTO) 3.7 % (0.0-3.0); HEMATOCRIT 29.9 % (37.0-47.0); HEMOGLOBIN 10.2 G/DL (12.0-16.0); LYMPHOCYTES % (AUTO) 12.7 % (20.0-45.0); MEAN CORPUSCULAR VOLUME 94 FL (80-99); MONOCYTES % (AUTO) 8.4 % (1.0-10.0); PLATELET COUNT 115 K/UL (150-450); RED BLOOD COUNT 3.16 M/UL (4.20-5.40); RED CELL DISTRIBUTION WIDTH 12.7 % (11.6-14.8); WHITE BLOOD COUNT 8.9 K/UL (4.8-10.8)
[2019-07-23 07:57] LABS: ALANINE AMINOTRANSFERASE 15 U/L (12-78); ALBUMIN 2.9 G/DL (3.4-5.0); ALBUMIN/GLOBULIN RATIO 0.9 (1.0-2.7); ALKALINE PHOSPHATASE 104 U/L (46-116); ANION GAP 15 mmol/L (5-15); ASPARTATE AMINO TRANSFERASE 13 U/L (15-37); BILIRUBIN,TOTAL 0.4 MG/DL (0.2-1.0); BLOOD UREA NITROGEN 93 mg/dL (7-18); CARBON DIOXIDE 25 MMOL/L (21-32); CHLORIDE 97 MMOL/L (98-107); CREATININE 8.9 MG/DL (0.55-1.30); POTASSIUM 5.9 MMOL/L (3.5-5.1); SODIUM 137 MMOL/L (136-145)
--- NOTE | 2019-07-23 07:58 | NUR ---
NURSE NOTES: pt. awake and eating. Pt. on security monitor no signs of cardiac or respiratory distress at this time. Bed in lowest position and locked. call light within reach. Will continue to monitor pt. Pt will be having dialysis this morning. Per dialysis nurse hold BP med if any, nurse should be coming 10-11am today.
[2019-07-23 08:00] VITALS: BP 130/49
[2019-07-23 08:24] LABS: PHOSPHORUS 7.1 MG/DL (2.5-4.9)
[2019-07-23] MEDS ORDERED: Sodium Polystyrene Sulfonate 15gm Powder ORAL SCH (08:30)
--- NOTE | 2019-07-23 09:10 | NUR ---
DISCHARGE PLANNED TYRE RETREADER DISCUSSED DISCHARGE PLAN WITH PATIENT AT BEDSIDE [facility] WAS NOT PREPARED TO DIALYZE PATIENT TODAY PLAN IS FOR PATIENT TO BE DIALYZED TODAY HERE AT [place] AND THEN DISCHARGED TO "[facility]" TYRE RETREADER WILL COORDINATE DISCHARGE
[2019-07-23] MEDS: PARoxetine 20mg tab ORAL SCH (09:27)
[2019-07-23] MEDS: Ursodiol 300mg cap ORAL SCH ×2 (09:28→18:18)
[2019-07-23] MEDS: Docusate 100mg cap ORAL SCH ×3 (09:28→18:18)
--- NOTE | 2019-07-23 09:36 | NUR ---
NURSE NOTES: pt refused Sevelamer statin that this medication gives her constipation.
[2019-07-23] MEDS ORDERED: Lidocaine 1% 10mg/ml/EPI 0.01mg/ml 30ml INJ SCH (11:45)
[2019-07-23 12:00] VITALS: BP 122/74
--- NOTE | 2019-07-23 12:00 | NUR ---
P.T. NOTES S/P: APPROACHED PATIENT'S ROOM IN THE PM. PATIENT FOUND IN A SEMI-FALCON'S POSITION IN BED, HAVING A DIALYSIS PROCEDURE. UPON ARRIVAL. RN AWARE OF PATIENT'S STATUS. WILL F/U NEXT TX. TIME AND CONT WITH P.T. PLAN. RSABADO.
--- NOTE | 2019-07-23 12:05 | NUR ---
NURSE NOTES: Needs proof of flu vaccine to be fax to [facility] @ [phone]. Family will have PCP fax it to us.
--- NOTE | 2019-07-23 13:24 | Nephrology Progress Note ---
Assessment/Plan Problem List: (1) End stage renal disease (2) Failure to thrive (3) Depression Assessment ESRD Other Dx; CAD Depression Plan HD today . Kayexelate Phos binders discussed with son Subjective ROS Limited/Unobtainable: No Constitutional: Reports: malaise Objective Objective Last 24 Hour Vital Signs Date Time Temp Pulse Resp B/P (MAP) Pulse Ox O2 Delivery O2 Flow Rate FiO2 07/23/19 12:00 97.9 59 18 122/74 (90) 96 07/23/19 09:20 60 20 96 Room Air 21 07/23/19 09:00 Room Air 07/23/19 09:00 63 07/23/19 08:00 97.7 62 18 130/49 (76) 92 07/23/19 04:00 97.9 64 18 118/50 (72) 94 07/23/19 04:00 64 07/23/19 00:00 66 07/23/19 00:00 97.9 66 18 128/48 (74) 94 07/22/19 21:00 Room Air 07/22/19 20:57 70 116/51 07/22/19 20:06 67 18 94 Room Air 21 07/22/19 20:00 97.9 69 18 116/51 (72) 95 07/22/19 20:00 69 07/22/19 16:00 97.3 66 18 116/45 (68) 94 07/22/19 16:00 66 Intake and Output 07/22/19 07/23/19 19:00 07:00 Intake Total 600 ml Balance 600 ml Intake Oral 600 ml # Voids 1 Current Medications Medications (Trade) Dose Ordered Sig/Iliana Route PRN Reason Start Time Stop Time Status Last Admin Dose Admin Acetaminophen (Tylenol) 650 mg Q4H PRN ORAL Mild Pain (Pain Scale 1-3) 07/20/19 14:30 08/19/19 14:29 Acetaminophen (Tylenol) 650 mg Q4H PRN ORAL fever 07/20/19 14:30 08/19/19 14:29 Albuterol/ Ipratropium (Albuterol/ Ipratropium) 3 ml Q4H PRN HHN Shortness of Breath 07/20/19 14:30 07/25/19 14:29 Atorvastatin Calcium (Lipitor) 80 mg BEDTIME ORAL 07/21/19 21:00 08/20/19 20:59 07/22/19 20:57 Carvedilol (Coreg) 3.125 mg EVERY 12 HOURS ORAL 07/21/19 12:45 08/20/19 12:44 07/22/19 20:57 Clopidogrel Bisulfate (Plavix) 75 mg DAILY ORAL 07/20/19 14:26 08/19/19 14:25 07/23/19 09:28 Dextrose (Dextrose 50%) 25 ml Q30M PRN IV Hypoglycemia 07/20/19 14:30 08/19/19 14:29 Dextrose (Dextrose 50%) 50 ml Q30M PRN IV Hypoglycemia 07/20/19 14:30 08/19/19 14:29 Docusate Sodium (Colace) 100 mg TID ORAL 07/22/19 13:00 08/20/19 13:14 07/23/19 09:28 Ondansetron HCl (Zofran) 4 mg Q6H PRN IVP Nausea & Vomiting 07/20/19 14:30 08/19/19 14:29 Pantoprazole (Protonix) 40 mg DAILY ORAL 07/23/19 09:00 08/22/19 08:59 07/23/19 09:28 Paroxetine HCl (Paxil) 20 mg DAILY ORAL 07/21/19 12:15 08/20/19 12:14 07/23/19 09:27 Pramipexole (Mirapex) 0.125 mg QHS PRN ORAL restlessness 07/20/19 14:30 08/19/19 14:29 Risperidone (RisperDAL) 0.25 mg DAILY ORAL 07/21/19 09:00 08/20/19 08:59 07/23/19 09:28 Risperidone (RisperDAL) 0.25 mg Q12H PRN ORAL For Anxiety 07/20/19 14:30 08/19/19 14:29 Sacubitril/ Valsartan (Entresto 49mg/ 51mg) 1 tab Q12HR ORAL 07/21/19 14:00 08/20/19 13:59 07/22/19 20:58 Sevelamer Carbonate (Renvela) 800 mg THREE TIMES A DAY ORAL 07/22/19 18:00 08/21/19 17:59 07/22/19 17:38 Ursodiol (Actigall) 300 mg TWICE A DAY ORAL 07/21/19 12:45 08/20/19 12:44 07/23/19 09:28 Laboratory Tests 07/23/19 05:27: White Blood Count 8.9, Red Blood Count 3.16L, Hemoglobin 10.2L, Hematocrit 29.9L , Mean Corpuscular Volume 94, Mean Corpuscular Hemoglobin 32.3H, Mean Corpuscular Hemoglobin Concent 34.2, Red Cell Distribution Width 12.7, Platelet Count 115L, Mean Platelet Volume 8.6, Neutrophils (%) (Auto) 74.0, Lymphocytes ( %) (Auto) 12.7L, Monocytes (%) (Auto) 8.4, Eosinophils (%) (Auto) 3.7H, Basophils (%) (Auto) 1.2, Sodium Level 137, Potassium Level 5.9H, Chloride Level 97L, Carbon Dioxide Level 25, Anion Gap 15, Blood Urea Nitrogen 93H, Creatinine 8.9H, Estimat Glomerular Filtration Rate , Glucose Level 103, Hemoglobin A1c 7.0H, Uric Acid 7.1, Calcium Level 8.0L, Phosphorus Level 7.1H, Total Bilirubin 0.4, Aspartate Amino Transf (AST/SGOT) 13L, Alanine Aminotransferase (ALT/SGPT) 15, Alkaline Phosphatase 104, C-Reactive Protein, Quantitative 0.6, Pro-B-Type Natriuretic Peptide 28365I, Total Protein 6.2L, Albumin 2.9L, Globulin 3.3, Albumin/Globulin Ratio 0.9L Height (Feet): 5 Height (Inches): 2.00 Weight (Pounds): 155 General Appearance: no apparent distress Cardiovascular: normal rate Respiratory/Chest: lungs clear Abdomen: soft Heath Moreno MD Jul 23, 2019 13:24
--- NOTE | 2019-07-23 14:46 | Discharge Summary ---
Discharge Summary Hospital Course Date of Admission Jul 20, 2019 at 10:41 Date of Discharge 07/23/2019 Admitting Diagnosis End Stage Renal Disease, Failure to Thrive HPI Kendra Blancas is a 83 year old female who was admitted on Jul 20, 2019 at 10:41 for End Stage Renal Disease, Failure To Thrive Consultations nephrology Procedures HD Hospital Course is a 83 year old female with ESRD on HD, depression, behavioral disturbance, cardiac arrest, L femoral fx s/p manoj placement, largely bedbound, presenting from SNF in [place], here for placement into SNF in [facility]. #ESRD on HD gets it via LUE AVF. MWF -> TTS (recently switched) -Nephrology consult with Dr. Moreno -Get CMP today, may or may not need HD, last HD on Wednesday 07/19 -Case management for setting up outpatient dialysis #Depression #Restlessness #Behavioral disturbance -Continue daily and prn risperidone. -Continue Paroxetine 20 mg daily -Continue Pramipexole 0.125 mg qhs prn -Son requesting increasing dose of risperidone given "outbursts" of agitation at times. Will monitor and up titrate prn. #s/p cardiac arrest Unclear etiology of cardiac arrest. -continue home plavix 75 daily -continue home coreg 3.125 BID -Continue Entresto 49/51 BID -Continue Lipitor 80 daily #constipation No BM ~4 days. -Lactulose x1, dulcolax x1 today. -Standing colace BID. #Placement -Case management consult. Will need 3 days of inpatient stay for SNF. -To be followed up on Monday. (Has been talking with Lisa Page?) -PT ordered -Case d/w Son. Plan of care d/w son, CM and underwriting consultant. today she is doing well. On exam she is pleasant. Alert and oriented x3, getting HD today I spent 40 minutes on this encounter. > 50% spent on counselling and care coordination. I spent an additional 35 minutes reviewing hospitalization and course of treatment. Discharge Medications Continued Medications: Atorvastatin Calcium* (Atorvastatin Calcium*) 40 Mg Tablet 80 MG ORAL BEDTIME for hyperlipid, TAB (This prescription has been renewed) Carvedilol* (Carvedilol*) 3.125 Mg Tablet 3.125 MG ORAL EVERY 12 HOURS for HTN, TAB (This prescription has been renewed) Clopidogrel* (Clopidogrel*) 75 Mg Tablet 75 MG ORAL DAILY for antiplatelet, TAB (This prescription has been renewed) Ferric Citrate (Auryxia) 210 Mg Tablet 210 MG PO THREE TIMES A DAY for end stage renal disease, TAB (This prescription has been renewed) Ferric Citrate (Auryxia) 210 Mg Tablet 210 MG PO THREE TIMES A DAY for phosphate control, TAB (This prescription has been renewed) PARoxetine HCl (Paroxetine Cr) 12.5 Mg Tab.er.24h 20 MG PO DAILY for depression, TAB (This prescription has been renewed) Pramipexole* (Mirapex*) 0.25 Mg Tablet 0.125 MG ORAL BEDTIME PRN for Restlessness for 30 Days, TAB Risperidone (Risperidone) 0.25 Mg Tablet 0.25 MG PO DAILY for anxiety, TAB (This prescription has been renewed) Risperidone (Risperidone) 0.25 Mg Tablet 0.25 MG PO Q12HR PRN for For Anxiety, TAB (This prescription has been renewed) Sacubitril/Valsartan (Entresto 49 mg-51 mg Tablet) 1 Each Tablet 1 EA PO BID for HTN, TAB (This prescription has been renewed) Ursodiol (Ursodiol*) 300 Mg Capsule 300 MG ORAL TWICE A DAY for dissolves gall stones, #30 CAP 0 Refills (This prescription has been renewed) Discharge Condition Upon Discharge: stable Discharge Disposition Patient was discharged to [facility], [facility] Discharge Diagnoses: (1) Failure to thrive (2) End stage renal disease (3) Thrombocytopenia (4) Depression Kb Murphy M.D. Jul 23, 2019 14:46
--- NOTE | 2019-07-23 15:28 | NUR ---
*-*DISCHARGE PLANNED*-* PATIENT IS DISCHARGING TO: [facility] P:[phone] FOR NURSE TO NURSE REPORT [facility] HAS BEEN ARRANGED FOR 1730 BOTH PATIENT AND SON IN AGREEMENT W/ DISCHARGE PLAN
[2019-07-23 16:00] VITALS: BP 111/54
--- NOTE | 2019-07-23 17:30 | NUR ---
NURSE NOTES: called in report to Lisa Shen, and spoke to Bridget. Son is aware of pt leaving facility today to go to SNF.
--- NOTE | 2019-07-23 19:39 | NUR ---
HAND-OFF: Report given to Feliciano/JUNITO, pt in stable condition waiting go to SNF.
--- NOTE | 2019-07-23 19:40 | NUR ---
NURSE NOTES: Received pt from JUNITO Garcia. Pt is awake and resting in bed awaiting [facility] ambulance to pick her up for d/c. Pt Iv site intact. Bed locked in lowest position, bed alarm on, and call light within reach. Will continue with plan of care.
--- NOTE | 2019-07-23 20:40 | NUR ---
Discharge: Pt dischaged via [facility]. Iv and armband removed. brake tester removed and returned to biological technical officer. Belongings verified with pt and nurse upon shift change. Report given to [facility]. Pt stable.
== END 2019-07-23 20:45 | DRG 682 ==
LOC: EMR 09:10 → 2E 10:41 → EDBEDREQ 12:43
DX: I12.0 Hypertensive chronic kidney disease with stage 5 chronic kidney disease or end stage renal disease (principal); N18.6 End stage renal disease; F03.91 Unspecified dementia, unspecified severity, with behavioral disturbance; D69.6 Thrombocytopenia, unspecified; R62.7 Adult failure to thrive; Z68.27 Body mass index [BMI] 27.0-27.9, adult; F32.9 Major depressive disorder, single episode, unspecified; Z99.2 Dependence on renal dialysis; Z88.6 Allergy status to analgesic agent; Z88.1 Allergy status to other antibiotic agents; Z88.0 Allergy status to penicillin; Z66 Do not resuscitate; Z86.74 Personal history of sudden cardiac arrest; K59.00 Constipation, unspecified
CPT/HCPCS: 36415; 80053; 83036; 83690; 83735; 83880; 84100; 84484; 84550; 85025; 85610; 85730; 86140; 86706; 86707; 86803; 87081; 93005; 94664; 99285